=== PATIENT | female | born 1960 | race Caucasian/White ===

== ENCOUNTER 2024-03-16 21:33 | Emergency (ER) | payer OTHER ==
[~2024-03-16] VITALS: Ht 177.8 cm; Wt 77.1 kg
[~2024-03-16 21:33] MED LIST: AMOCLA875 PO; BUPR100; DIVA250EC; FLUO10 PO; GABA100; HYDACE5 PO; LORA.5; Prozac20 MG PO; QUET200; RANI150
[2024-03-16 21:45] VITALS: BP 144/102
[2024-03-16] MEDS ORDERED: Morphine Sulfate 4 MG/1 ML Injection IV ONE (21:55)
[2024-03-16] MEDS ORDERED: Ketorolac Tromethamine 15mg Vial IV ONE (21:55)
[2024-03-16] MEDS ORDERED: OxyCODONE 10/Acetamin 325 TABLET PO ONE (23:05)
[2024-03-16] MEDS ORDERED: Percocet 5-3251 EACH PO (23:26)
[2024-03-16] MEDS ORDERED: ACET500 PO (23:26)
[2024-03-16] MEDS ORDERED: IBUP600 PO (23:26)
== END 2024-03-16 23:38 | disposition home or self-care (01) ==
LOC: ER 21:33
DX: S52.612A Displaced fracture of left ulna styloid process, initial encounter for closed fracture (principal); S52.302A Unspecified fracture of shaft of left radius, initial encounter for closed fracture; W01.0XXA Fall on same level from slipping, tripping and stumbling without subsequent striking against object, initial encounter; Y93.41 Activity, dancing; Z79.899 Other long term (current) drug therapy; Z88.0 Allergy status to penicillin
CPT/HCPCS: 29125; 73110; 96374-59; 96375-59; 99283-25; A9270; J1885; J2270

== ENCOUNTER 2024-05-22 06:08 | Day surgery (SDC) | payer OTHER ==
[~2024-05-22] VITALS: Ht 175.3 cm; Wt 79.6 kg
[~2024-05-22 06:08] MED LIST changes: +ACET500 PO; +BUSP5 PO; -GABA100; +GABA100 PO; +IBUP600 PO; +Percocet 5-3251 EACH PO
[2024-05-22] MEDS ORDERED: Lactated Ringer's 1,000 ML IV ONE ×2 (06:14→07:55)
[2024-05-22] MEDS ORDERED: Lidocaine 1%-Epineph 1:100000 20 ML MDV ONE (06:56)
[2024-05-22] MEDS ORDERED: CeFAZolin Sodium 2,000 MG VIAL ONE (07:21)
[2024-05-22] MEDS ORDERED: NS 50 ML IV ONE (07:21)
[2024-05-22] MEDS ORDERED: BUSPIRONE HCL7.5 M1 (07:38)
[2024-05-22] MEDS ORDERED: TRAZ50 (07:43)
[2024-05-22] MEDS ORDERED: PRAZOSIN HCL1 M2 (07:43)
[2024-05-22] MEDS ORDERED: propofoL 20 ML IV ONE (07:55)
[2024-05-22] MEDS ORDERED: FentaNYL Citrate 50 MCG/ML 2 ML Injection ONE ×2 (07:56→09:22)
[2024-05-22] MEDS ORDERED: Ondansetron HCl 2 MG / ML 2ML Vial ONE (07:56)
[2024-05-22] MEDS ORDERED: Midazolam HCl 1MG / ML 2ML Vial ONE (07:56)
[2024-05-22] MEDS ORDERED: Dexamethasone Sod Phos 10 MG/ML 1ML VIAL ONE (07:56)
[2024-05-22] MEDS ORDERED: Glycopyrrolate 0.2 MG/ML 5ML VIAL ONE (08:18)
[2024-05-22] MEDS ORDERED: Ketorolac Tromethamine 30mg Vial ONE (08:18)
[2024-05-22] MEDS ORDERED: HYDROmorphone HCl/Pf 1MG SYR ONE (08:36)
[2024-05-22] MEDS ORDERED: ePHEDrine Sulfate 50 MG/ML 1ML Injection ONE (08:44)
[2024-05-22 09:37] VITALS: BP 132/83
== END 2024-05-22 10:17 | disposition home or self-care (01) ==
LOC: ORSCSDS 06:08
PROVIDERS: Orthopaedic Surgery
PROC: 0QP104Z Removal of Internal Fixation Device from Sacrum, Open Approach (ICD-10-PCS; principal; 2024-05-22 08:00)
DX: S52.572D Other intraarticular fracture of lower end of left radius, subsequent encounter for closed fracture with routine healing (principal); S52.612D Displaced fracture of left ulna styloid process, subsequent encounter for closed fracture with routine healing; I10 Essential (primary) hypertension; J44.9 Chronic obstructive pulmonary disease, unspecified; F17.210 Nicotine dependence, cigarettes, uncomplicated; F31.9 Bipolar disorder, unspecified; Z79.899 Other long term (current) drug therapy
CPT/HCPCS: J0690; J1100; J1171; J1885; J2250; J2405; J2704; J3010; J7120